=== PATIENT | female | born 1995 ===

== ENCOUNTER 2024-05-30 05:40 | Day surgery (SDC) | payer OTHER ==
[2024-05-26 11:27] LABS: HEMATOCRIT 35.7 % (36.0-45.00); HEMOGLOBIN 11.5 g/dL (12.0-15.00); MEAN CELL VOLUME 82.3 fL (80.00-100.00); MEAN CORPUSCULAR HEMOGLOBIN 26.4 pg (27.00-32.0); PLATELET COUNT 332 K/uL (150-450); RED BLOOD COUNT 4.34 M/uL (4.00-6.00); RED CELL DISTRIBUTION WIDTH 14.7 % (11.5-14.5)
[2024-05-26 11:36] LABS: PH,URINE 5.5 (5.0-8.0); URINE APPEARANCE Clear; URINE BILIRRUBIN Negative (NEGATIVE); URINE BLOOD Large; URINE COLOR Yellow; URINE GLUCOSE Negative (NEGATIVE); URINE KETONE Negative (NEGATIVE); URINE LEUKOCYTE Trace; URINE NITRATE Positive; URINE PROTEIN Negative (NEGATIVE); URINE UROBILINOGEN 0.2 E.U./dl
[2024-05-26 11:37] LABS: URINE EPITHELIAL CELLS 24.7 uL (0.0-38.8); URINE RBC 164.5 uL (0.0-20.8); URINE WBC 39.2 uL (0.0-23.2)
[2024-05-26 11:44] LABS: URINE BACTERIA > 9821.5 uL (0.0-1933); URINE CAST 0.15 uL (0.0-1.40)
[2024-05-26 11:54] LABS: PARTIAL THROMBOPLASTIN TIME 29.9 SECONDS (22.0-34.0); PROTHROMBIN TIME 10.9 SECONDS (9.0-11.5)
[2024-05-26 12:00] LABS: ALBUMIN 3.8 gm/dL (3.4-5.0); BILIRUBIN TOTAL 0.49 mg/dL (0.3-1.2); CALCIUM 9.2 mg/dL (8.5-10.1); CREATININE SERUM 0.62 mg/dL (0.55-1.02); GFR 115.46; GLOBULINA 3.4 G/DL (2.4-3.5); POTASSIUM 4.13 mEq/L (3.5-5.1); TOTAL PROTEIN 7.2 gm/dL (6.4-8.2)
[2024-05-30] MEDS ORDERED: MORPHINE SULFATE 4 MG/ML VIAL IV ONE ×2 (14:45→15:45)
[2024-05-30] MEDS ORDERED: CEFAZOLIN SODIUM 1,000 MG VIAL IV ONE (15:15)
== END 2024-05-30 16:30 | disposition home or self-care (01) ==
LOC: CIR.AMB 05:40
PROVIDERS: ATTEND Orthopaedic Surgery Hand Surgery
DX: S52.532A Colles' fracture of left radius, initial encounter for closed fracture (principal)
CPT/HCPCS: 25609; 25118; 25280; L8699